=== PATIENT | male | born 1980 | race Two or more races ===

== ENCOUNTER 2023-09-10 09:16 | Emergency (ER) | payer SELFPAY ==
[~2023-09-10] VITALS: Ht 180.3 cm; Wt 74.0 kg
[2023-09-10 09:21] VITALS: BP 100/73; PULSE 67; TEMP 98.6; O2SAT 100
[2023-09-10 10:18] LABS: BASOPHILS % 0.5 % (0.0-2.0); EOSINOPHILS % 0.2 % (0.0-5.0); HEMATOCRIT. 45.6 % (42.0-52.0); HEMOGLOBIN. 15.4 g/dL (14.0-18.0); LYMPHOCYTES % 19.2 % (20.0-50.0); MEAN CORPUSCULAR HGB CONC 33.8 g/dL (31.0-37.0); MEAN CORPUSCULAR VOLUME 82.8 fL (80.0-94.0); MEAN PLATELET VOLUME 8.7 fl (7.4-10.4); MONOCYTES % 7.2 % (2.0-8.0); NEUTROPHILS % 72.9 % (40.0-76.0); PLATELET 251 x1000/uL (130-400); RED CELL DISTRIBUTION WIDTH 19.5 % (11.6-14.6); WHITE BLOOD COUNT 7.8 x1000/uL (4.5-11.0)
[2023-09-10 10:22] LABS: CHLORIDE 102 mEq/L (98-107); SODIUM 138 mEq/L (136-145)
[2023-09-10 10:23] LABS: CALCIUM 9.9 mg/dL (8.7-10.4); CARBON DIOXIDE 26 mEq/L (21-32)
[2023-09-10 10:28] LABS: CREATININE 1.5 mg/dL (0.6-1.3); GLUCOSE 135 mg/dL (70-105); UREA NITROGEN BLOOD 8 mg/dL (9-23)
[2023-09-10 10:29] LABS: PROTHROMBIN TIME 11.4 sec (9.6-11.0)
[2023-09-10 10:30] LABS: ALANINE AMINOTRANSFERASE 22 IU/L (10-49); ALBUMIN 4.6 g/dL (3.2-4.8); ASPARTATE AMINOTRANSFERASE 27 IU/L (<34); BILIRUBIN DIRECT 0.4 mg/dL (<=3.0)
[2023-09-10 10:31] LABS: BILIRUBIN TOTAL 1.4 mg/dL (0.1-1.0); PROTEIN TOTAL 7.7 g/dL (6.0-8.3)
[2023-09-10 10:38] LABS: ETHANOL BLOOD < 10 mg/dL (<10)
[2023-09-10] MEDS: FAMOTIDINE 20MG TABLET PO NR (12:30)
[2023-09-10] MEDS: SODIUM CHLORIDE 0.9% 1,000 ML IV ONE (12:30)
[2023-09-10] MEDS: ONDANSETRON HCL 4MG/2ML INJ IM NR (12:30)
[2023-09-10] MEDS: ONDANSETRON 4MG ODT PO ONE (13:06)
[2023-09-10] MEDS ORDERED: ACET-2708 PO (13:53)
[2023-09-10] MEDS ORDERED: ONDA4TAB50 MT (13:53)
[2023-09-10] MEDS ORDERED: FAMO40TA7 MT (13:53)
[2023-09-10 14:00] VITALS: RESP 16
== END 2023-09-10 14:09 | disposition home or self-care (01) ==
LOC: ER 09:16
DX: K29.00 Acute gastritis without bleeding (principal); F12.90 Cannabis use, unspecified, uncomplicated
CPT/HCPCS: 80076; 80048; 80320; 83690; 85025; 85610; 36415; 76705; 99284; Q0162; Z7610 ×2; G0480